=== PATIENT | male | born 1975 | race Two or more races ===

== ENCOUNTER 2021-04-02 10:05 | Inpatient (IN) | payer MEDICAID, OTHER ==
[~2021-04-02] VITALS: Ht 167.6 cm; Wt 89.5 kg
[2021-04-02 11:04] LABS: Urine Bacteria FEW /hpf (None Seen); Urine Blood Negative /uL (Negative); Urine Hyaline Cast FEW /lpf (0 - 2); Urine Mucus FEW (None Seen); Urine Specific Gravity 1.019 (1.001-1.035); Urine WBC 1 /hpf (0 - 3)
[2021-04-02 11:37] LABS: Basophils # (auto) 0 10 ^3/uL (0-0.2); Eosinophils # (auto) 0 10 ^3/uL (0-0.8); Lymphocytes # (auto) 0.5 10 ^3/uL (0.4-5.4); Monocytes # (auto) 0.7 10 ^3/uL (0-1.3)
[2021-04-02 11:39] LABS: Basophils % (auto) 0.2 % (0.0-2.0); Eosinophils % (auto) 0.1 % (0.0-7.0); Hematocrit 41.6 % (41.0-53.0); Lymphocytes % (auto) 4.4 % (10.0-50.0); Mean Corpuscular Hemoglobin 26.9 pg (28.0-32.0); Mean Corpuscular Hgb Conc. 33.6 g/dL (32.0-36.0); Mean Corpuscular Volume 80.1 fL (80.0-100.0); Monocytes % (auto) 5.6 % (0.0-12.0); Neutrophils # (auto) 11.1 10 ^3/uL (1.6-8.6); Neutrophils % (auto) 89.7 % (37.0-80.0); Nucleated Red Blood Cells % 0.1 %; Red Cell Distribution Width 13.9 % (11.8-14.3); White Blood Cell 12.4 10^3/uL (4.4-10.8)
[2021-04-02 11:48] LABS: Albumin 3.8 g/dL (3.4-5.0); Calcium 8.4 mg/dL (8.5-10.1); Potassium 4.5 mmol/L (3.5-5.1)
[2021-04-02 11:59] LABS: Total Protein 7.1 g/dL (6.4-8.2)
[2021-04-02] MEDS ORDERED: cefTRIAXone 1GM/50ML D5W 50 ML IV ONE (15:15)
[2021-04-02] MEDS ORDERED: NITROGLYCERIN 0.4 MG SL TAB SL PRN (18:00)
[2021-04-02] MEDS ORDERED: MORPHINE SULFATE INJECTION 2 MG/ML SYRG IV PRN ×2 (18:00→19:30)
[2021-04-02] MEDS ORDERED: DEXTROSE (50%) 50ML SYRG IV PRN (18:00)
[2021-04-02] MEDS: ACCU-CHEK COMFORT CURVE STRIP VI SCH ×2 (18:54→23:50)
[2021-04-02] MEDS: InsuLIN REG 1unit/0.01ml Soln (100units/ml) SC SCH ×2 (19:14→23:56)
[2021-04-02] MEDS ORDERED: hydrALAZINE HCL 20 MG/ML VL IV PRN (19:30)
[2021-04-02] MEDS ORDERED: HYDROcodone-ACET 5/325MG TAB PO ONE (19:30)
[2021-04-02] MEDS ORDERED: IPRATROPIUM BROM 0.5 MG/2.5ML INH SOL NEB ONE (19:30)
[2021-04-02] MEDS ORDERED: LORazepam 0.5 MG TAB PO PRN (19:30)
[2021-04-02] MEDS ORDERED: MULTIPLE VITAMINS W/ MINERALS TAB PO ONE (19:30)
[2021-04-02] MEDS ORDERED: ONDANSETRON HCL 4 MG/2 ML VIAL IV PRN (19:30)
[2021-04-02] MEDS ORDERED: FOLIC ACID 1 MG TAB PO ONE (19:30)
[2021-04-02] MEDS ORDERED: THIAMINE 100mg/ml INJ (200mg/2ml VIAL) IV ONE (19:30)
[2021-04-02] MEDS ORDERED: HYDROcodone-ACET 5/325MG TAB PO PRN ×2 (19:30)
[2021-04-02 19:32] LABS: Lactic Acid w/Reflex 3.7 mmol/L (0.4-2.0)
[2021-04-02 20:06] LABS: Magnesium 2.9 mg/dL (1.6-2.6)
[2021-04-02] MEDS ORDERED: IPRATROPIUM BROM 0.5 MG/2.5ML INH SOL NEB SCH (22:00)
[2021-04-02] MEDS ORDERED: IPRATROPIUM BROM 0.5 MG/2.5ML INH SOL NEB PRN (22:00)
[2021-04-02] MEDS ORDERED: POTASSIUM CHL 20 Meq TABLET PO SCH (22:00)
[2021-04-02] MEDS: PANTOPRAZOLE 40 MG/10 ML VIAL INJ IV SCH (22:21)
[2021-04-02 23:52] LABS: INR 1.17 (0.9-1.15); Partial Thromboplastin Time 21.4 sec (23.6-33.0)
[2021-04-03] MEDS: LACTULOSE 20Gm/30ML SOLN PO PRN (03:10)
[2021-04-03] MEDS: ACCU-CHEK COMFORT CURVE STRIP VI SCH ×3 (06:00→18:05)
[2021-04-03] MEDS ORDERED: FUROSEMIDE 20 MG/2 ML VIAL IV SCH (06:00)
[2021-04-03] MEDS: SODIUM CHLORIDE 0.9% 1,000 ML IV SCH ×2 (06:00→08:15)
[2021-04-03] MEDS: InsuLIN REG 1unit/0.01ml Soln (100units/ml) SC SCH ×3 (07:02→18:14)
[2021-04-03 07:47] LABS: INR 1.26 (0.9-1.15); Partial Thromboplastin Time 24.1 sec (23.6-33.0)
[2021-04-03 08:05] LABS: Magnesium 3.6 mg/dL (1.6-2.6); Phosphorus 5.7 mg/dL (2.5-4.90); Uric Acid 13.4 mg/dL (3.5-7.2)
[2021-04-03] MEDS: INSULIN LANTUS (GLARGINE) 1 /0.01ml (100units/ml) SC SCH ×2 (08:15→23:52)
[2021-04-03] MEDS: cefTRIAXone 1GM/50ML D5W 50 ML IV SCH (09:00)
[2021-04-03 09:08] LABS: Basophils # (auto) 0 10 ^3/uL (0-0.2); Eosinophils # (auto) 0 10 ^3/uL (0-0.8); Eosinophils % (auto) 0.2 % (0.0-7.0); Hemoglobin 13.5 g/dL (13.5-17.5); Mean Corpuscular Hemoglobin 26.1 pg (28.0-32.0); Monocytes # (auto) 1.2 10 ^3/uL (0-1.3)
[2021-04-03 09:11] LABS: Basophils % (auto) 0.3 % (0.0-2.0); Hematocrit 41.4 % (41.0-53.0); Lymphocytes # (auto) 0.9 10 ^3/uL (0.4-5.4); Lymphocytes % (auto) 6.9 % (10.0-50.0); Mean Corpuscular Hgb Conc. 32.7 g/dL (32.0-36.0); Monocytes % (auto) 9.3 % (0.0-12.0); Neutrophils # (auto) 10.9 10 ^3/uL (1.6-8.6); Neutrophils % (auto) 83.3 % (37.0-80.0); Nucleated Red Blood Cells % 0.1 %; Red Blood Cells 5.18 10^6/uL (4.5-5.90); Red Cell Distribution Width 13.5 % (11.8-14.3); White Blood Cell 13.1 10^3/uL (4.4-10.8)
[2021-04-03 09:13] LABS: Albumin 3.5 g/dL (3.4-5.0); Calcium 8.7 mg/dL (8.5-10.1); Potassium 4.3 mmol/L (3.5-5.1)
[2021-04-03 09:16] LABS: BUN/Creatinine Ratio 36.7; Total Protein 6.7 g/dL (6.4-8.2)
[2021-04-03] MEDS: METOPROLOL TARTRATE 25 MG TAB PO SCH ×2 (09:50→22:51)
[2021-04-03] MEDS: MULTIPLE VITAMINS W/ MINERALS TAB PO SCH (09:50)
[2021-04-03] MEDS: PANTOPRAZOLE 40 MG/10 ML VIAL INJ IV SCH ×2 (10:00→21:56)
[2021-04-03] MEDS ORDERED: FOLIC ACID 1 MG TAB PO SCH (10:00)
[2021-04-03] MEDS ORDERED: THIAMINE HCL 100 MG TAB PO SCH (10:00)
[2021-04-03] MEDS ORDERED: ENOXAPARIN SOD 40 MG/0.4 ML SYRINGE SC SCH (10:00)
[2021-04-03] MEDS ORDERED: HYDR25TA5 PO (10:02)
[2021-04-03] MEDS ORDERED: NIFE1TAB30 PO (10:02)
[2021-04-03] MEDS ORDERED: METF-370 PO ×2 (10:21→13:11)
[2021-04-03] MEDS ORDERED: BENA10TA15 PO ×2 (10:21→13:11)
[2021-04-03] MEDS: AZITHROMYCIN 500MG/ 250ML 250 ML IV SCH (11:00)
[2021-04-03 13:00] VITALS: BP_SYST 122; BP_SYST 169; BP_DIAS 65; BP_DIAS 98
[2021-04-03 13:03] LABS: Amphetamine Screen, Urine NEGATIVE (NEGATIVE); Barbiturate Scree,Urine NEGATIVE (NEGATIVE); Benzodiazephine Screen, Urine NEGATIVE (NEGATIVE); Cannabinoid Screen, Urine NEGATIVE (NEGATIVE); Cocaine Screen, Urine NEGATIVE (NEGATIVE); Opiate Scree,Urine NEGATIVE (NEGATIVE); Phencyclidine Screen, Urine NEGATIVE (NEGATIVE)
[2021-04-03] MEDS ORDERED: FURO1TAB33 PO (13:11)
[2021-04-03] MEDS ORDERED: PRED20TA2 PO (13:11)
[2021-04-03] MEDS ORDERED: cloNIDine HCL 0.1 MG TAB PO STA (16:25)
[2021-04-03 17:00] VITALS: BP 125/92
[2021-04-04] VITALS (21 sets, daily range): BP systolic 115–167; BP diastolic 74–106
[2021-04-04] MEDS: ACCU-CHEK COMFORT CURVE STRIP VI SCH ×4 (00:18→17:23)
[2021-04-04] MEDS: InsuLIN REG 1unit/0.01ml Soln (100units/ml) SC SCH ×5 (06:00→23:44)
[2021-04-04 06:08] LABS: Basophils # (auto) 0 10 ^3/uL (0-0.2); Eosinophils # (auto) 0 10 ^3/uL (0-0.8); Lymphocytes # (auto) 1.1 10 ^3/uL (0.4-5.4); Neutrophils # (auto) 12.1 10 ^3/uL (1.6-8.6); Nucleated Red Blood Cells % 0.1 %
[2021-04-04 06:12] LABS: Basophils % (auto) 0.2 % (0.0-2.0); Eosinophils % (auto) 0.2 % (0.0-7.0); Hematocrit 42.6 % (41.0-53.0); Hemoglobin 13.9 g/dL (13.5-17.5); Lymphocytes % (auto) 7.3 % (10.0-50.0); Mean Corpuscular Hemoglobin 26.3 pg (28.0-32.0); Mean Corpuscular Hgb Conc. 32.6 g/dL (32.0-36.0); Mean Corpuscular Volume 80.6 fL (80.0-100.0); Monocytes # (auto) 1.4 10 ^3/uL (0-1.3); Monocytes % (auto) 9.5 % (0.0-12.0); Neutrophils % (auto) 82.8 % (37.0-80.0); Red Blood Cells 5.28 10^6/uL (4.5-5.90); Red Cell Distribution Width 14.1 % (11.8-14.3); White Blood Cell 14.6 10^3/uL (4.4-10.8)
[2021-04-04 06:21] LABS: INR 1.4 (0.9-1.15); Partial Thromboplastin Time 25.1 sec (23.6-33.0)
[2021-04-04 06:38] LABS: Potassium 4.3 mmol/L (3.5-5.1)
[2021-04-04 06:56] LABS: BUN/Creatinine Ratio 34.6; Calcium 8.2 mg/dL (8.5-10.1)
[2021-04-04] MEDS: INSULIN LANTUS (GLARGINE) 1 /0.01ml (100units/ml) SC SCH ×2 (07:00→22:06)
[2021-04-04] MEDS ORDERED: LIDOCAINE 2%HCL (LOCAL ANESTH.) INJ 20ML MDV ONE (08:30)
[2021-04-04] MEDS ORDERED: fentaNYL CITRATE 100 MCG/2 ML VL ONE ×3 (08:33→09:41)
[2021-04-04] MEDS ORDERED: MIDAZOLAM HCL 2MG/2ML 2ml VIAL (1mg/ml) ONE ×2 (08:33→09:42)
[2021-04-04] MEDS ORDERED: SODIUM CHLORIDE 0.9% 500 ML IV ONE (09:00)
[2021-04-04] MEDS ORDERED: ATROPINE SULF 1 MG/10ml SYR ONE (09:01)
[2021-04-04] MEDS ORDERED: EPINEPHrine HCL 1 MG/10 ML SYRG ONE (09:01)
[2021-04-04] MEDS ORDERED: ANGIOMAX 250 MG VIAL IV ONE (09:40)
[2021-04-04] MEDS ORDERED: VERAPAMIL 2.5MG/ML INJ 2ML VIAL IV ONE (09:41)
[2021-04-04] MEDS ORDERED: HEPARIN SODIUM (PORCINE) 5000 UNITS/ML 1ML VIAL ONE (09:41)
[2021-04-04] MEDS ORDERED: SODIUM CHL 0.9% 0 ML ONE (09:42)
[2021-04-04] MEDS ORDERED: IODIXANOL 320MG/ML 100ML BTL IV ONE (09:42)
[2021-04-04] MEDS: SODIUM CHLORIDE 0.9% 1,000 ML IV SCH ×2 (11:45→19:00)
[2021-04-04] MEDS: cefTRIAXone 1GM/50ML D5W 50 ML IV SCH (11:55)
[2021-04-04] MEDS: AZITHROMYCIN 500MG/ 250ML 250 ML IV SCH (13:00)
[2021-04-04] MEDS: PANTOPRAZOLE 40 MG/10 ML VIAL INJ IV SCH ×2 (13:00→22:44)
[2021-04-04] MEDS: MULTIPLE VITAMINS W/ MINERALS TAB PO SCH (13:15)
[2021-04-04] MEDS: METOPROLOL TARTRATE 25 MG TAB PO SCH ×2 (13:15→22:45)
[2021-04-04] MEDS: hydrALAZINE HCL 20 MG/ML VL IV PRN (13:51)
[2021-04-04 14:05] LABS: Hemoglobin 14.5 g/dL (13.5-17.5)
[2021-04-05] VITALS (16 sets, daily range): BP systolic 123–160; BP diastolic 73–94
[2021-04-05 04:24] LABS: Calcium 7.6 mg/dL (8.5-10.1); Potassium 3.8 mmol/L (3.5-5.1)
[2021-04-05 04:26] LABS: BUN/Creatinine Ratio 35.5
[2021-04-05] MEDS: SODIUM CHLORIDE 0.9% 1,000 ML IV SCH (04:45)
[2021-04-05] MEDS: InsuLIN REG 1unit/0.01ml Soln (100units/ml) SC SCH ×4 (05:51→22:32)
[2021-04-05] MEDS: ACCU-CHEK COMFORT CURVE STRIP VI SCH ×5 (05:52→22:00)
[2021-04-05] MEDS: INSULIN LANTUS (GLARGINE) 1 /0.01ml (100units/ml) SC SCH ×2 (06:32→22:33)
[2021-04-05 08:18] LABS: Magnesium 2.8 mg/dL (1.6-2.6); Phosphorus 3.2 mg/dL (2.5-4.90)
[2021-04-05 08:39] LABS: Basophils # (auto) 0.1 10 ^3/uL (0-0.2); Basophils % (auto) 0.4 % (0.0-2.0); Eosinophils # (auto) 0.1 10 ^3/uL (0-0.8); Lymphocytes # (auto) 0.7 10 ^3/uL (0.4-5.4); Monocytes # (auto) 1.3 10 ^3/uL (0-1.3); Neutrophils % (auto) 83.6 % (37.0-80.0); Red Cell Distribution Width 13.8 % (11.8-14.3)
[2021-04-05 08:41] LABS: Eosinophils % (auto) 0.4 % (0.0-7.0); Hematocrit 40.5 % (41.0-53.0); Hemoglobin 13.6 g/dL (13.5-17.5); Lymphocytes % (auto) 5.6 % (10.0-50.0); Mean Corpuscular Hgb Conc. 33.7 g/dL (32.0-36.0); Mean Corpuscular Volume 80.1 fL (80.0-100.0); Neutrophils # (auto) 10.8 10 ^3/uL (1.6-8.6); Nucleated Red Blood Cells % 0.3 %; Red Blood Cells 5.06 10^6/uL (4.5-5.90)
[2021-04-05] MEDS: METOPROLOL TARTRATE 25 MG TAB PO SCH ×2 (09:03→22:24)
[2021-04-05] MEDS: cefTRIAXone 1GM/50ML D5W 50 ML IV SCH (09:03)
[2021-04-05] MEDS: AZITHROMYCIN 500MG/ 250ML 250 ML IV SCH (09:03)
[2021-04-05] MEDS ORDERED: DEXTROSE (50%) 50ML SYRG IV PRN (16:00)
[2021-04-05] MEDS ORDERED: DEXTROSE (50%) 50ML SYRG IV ONE (16:00)
[2021-04-05] MEDS ORDERED: InsuLIN REG 1unit/0.01ml Soln (100units/ml) SC ONE (17:00)
[2021-04-05] MEDS ORDERED: ACCU-CHEK COMFORT CURVE STRIP VI ONE (17:00)
[2021-04-05] MEDS: hydrALAZINE HCL 20 MG/ML VL IV PRN (18:28)
[2021-04-06 05:00] VITALS: BP 153/92
[2021-04-06 05:49] LABS: Basophils # (auto) 0 10 ^3/uL (0-0.2); Basophils % (auto) 0.4 % (0.0-2.0); Eosinophils # (auto) 0.1 10 ^3/uL (0-0.8); Monocytes # (auto) 1.2 10 ^3/uL (0-1.3)
[2021-04-06 05:52] LABS: Eosinophils % (auto) 1.3 % (0.0-7.0); Hematocrit 41.2 % (41.0-53.0); Hemoglobin 13.7 g/dL (13.5-17.5); Lymphocytes # (auto) 0.6 10 ^3/uL (0.4-5.4); Lymphocytes % (auto) 6.1 % (10.0-50.0); Mean Corpuscular Hemoglobin 26.9 pg (28.0-32.0); Mean Corpuscular Hgb Conc. 33.3 g/dL (32.0-36.0); Mean Corpuscular Volume 80.8 fL (80.0-100.0); Monocytes % (auto) 12.8 % (0.0-12.0); Neutrophils # (auto) 7.4 10 ^3/uL (1.6-8.6); Neutrophils % (auto) 79.4 % (37.0-80.0); Nucleated Red Blood Cells % 0.1 %; Red Cell Distribution Width 13.9 % (11.8-14.3); White Blood Cell 9.3 10^3/uL (4.4-10.8)
[2021-04-06 06:08] LABS: BUN/Creatinine Ratio 19.1; Potassium 3.7 mmol/L (3.5-5.1)
[2021-04-06] MEDS: InsuLIN REG 1unit/0.01ml Soln (100units/ml) SC SCH ×4 (06:31→22:03)
[2021-04-06] MEDS: ACCU-CHEK COMFORT CURVE STRIP VI SCH ×4 (06:31→21:47)
[2021-04-06] MEDS: hydrALAZINE HCL 20 MG/ML VL IV PRN ×2 (06:32→13:39)
[2021-04-06] MEDS: INSULIN LANTUS (GLARGINE) 1 /0.01ml (100units/ml) SC SCH ×2 (06:51→22:04)
[2021-04-06 09:00] VITALS: BP 157/93
[2021-04-06] MEDS: METOPROLOL TARTRATE 25 MG TAB PO SCH ×2 (09:46→21:46)
[2021-04-06] MEDS: cefTRIAXone 1GM/50ML D5W 50 ML IV SCH (09:47)
[2021-04-06] MEDS: AZITHROMYCIN 500MG/ 250ML 250 ML IV SCH (09:48)
[2021-04-06 13:00] VITALS: BP 158/99
[2021-04-06 15:29] LABS: Urine Bacteria NONE SEEN /hpf (None Seen); Urine Blood Negative /uL (Negative); Urine Specific Gravity 1.009 (1.001-1.035); Urine WBC 2 /hpf (0 - 3)
[2021-04-06 15:45] LABS: Protein, Urine 14.9 mg/dL (0.0-11.9)
[2021-04-06 17:00] VITALS: BP 152/89
[2021-04-06 20:20] VITALS: BP 172/103
[2021-04-06] MEDS: LACTULOSE 20Gm/30ML SOLN PO PRN (22:05)
[2021-04-07 06:00] VITALS: BP 140/96
[2021-04-07 06:13] LABS: BUN/Creatinine Ratio 13.3; Calcium 8.2 mg/dL (8.5-10.1); Potassium 3.7 mmol/L (3.5-5.1)
[2021-04-07] MEDS: ACCU-CHEK COMFORT CURVE STRIP VI SCH ×4 (06:30→22:10)
[2021-04-07] MEDS: InsuLIN REG 1unit/0.01ml Soln (100units/ml) SC SCH ×5 (06:30→22:17)
[2021-04-07] MEDS: INSULIN LANTUS (GLARGINE) 1 /0.01ml (100units/ml) SC SCH ×2 (06:37→22:12)
[2021-04-07] MEDS: cefTRIAXone 1GM/50ML D5W 50 ML IV SCH (08:51)
[2021-04-07] MEDS: METOPROLOL TARTRATE 25 MG TAB PO SCH ×2 (08:52→22:10)
[2021-04-07 09:00] VITALS: BP 139/97
[2021-04-07] MEDS: AZITHROMYCIN 500MG/ 250ML 250 ML IV SCH (10:07)
[2021-04-07 13:00] VITALS: BP 152/98
[2021-04-07 17:00] VITALS: BP 145/97
[2021-04-07 22:00] VITALS: BP 153/100
[2021-04-08] MEDS: ENALAPRILAT 1.25 MG/ML-1ML VIAL IV PRN ×3 (00:40→18:46)
[2021-04-08 05:00] VITALS: BP 143/93
[2021-04-08] MEDS: ACCU-CHEK COMFORT CURVE STRIP VI SCH ×4 (05:50→21:56)
[2021-04-08] MEDS: InsuLIN REG 1unit/0.01ml Soln (100units/ml) SC SCH ×4 (05:50→21:57)
[2021-04-08] MEDS: INSULIN LANTUS (GLARGINE) 1 /0.01ml (100units/ml) SC SCH ×2 (05:52→21:58)
[2021-04-08 07:03] LABS: Basophils # (auto) 0.1 10 ^3/uL (0-0.2); Basophils % (auto) 0.7 % (0.0-2.0); Eosinophils # (auto) 0.4 10 ^3/uL (0-0.8); Eosinophils % (auto) 4.1 % (0.0-7.0); Hematocrit 42.4 % (41.0-53.0); Hemoglobin 14.1 g/dL (13.5-17.5); Lymphocytes # (auto) 0.8 10 ^3/uL (0.4-5.4); Lymphocytes % (auto) 8.3 % (10.0-50.0); Mean Corpuscular Hemoglobin 26.5 pg (28.0-32.0); Mean Corpuscular Hgb Conc. 33.2 g/dL (32.0-36.0); Mean Corpuscular Volume 79.9 fL (80.0-100.0); Monocytes # (auto) 1.3 10 ^3/uL (0-1.3); Monocytes % (auto) 14.6 % (0.0-12.0); Neutrophils # (auto) 6.6 10 ^3/uL (1.6-8.6); Neutrophils % (auto) 72.3 % (37.0-80.0); Nucleated Red Blood Cells % 0.1 %; Red Cell Distribution Width 13.7 % (11.8-14.3); White Blood Cell 9.2 10^3/uL (4.4-10.8)
[2021-04-08 07:19] LABS: Potassium 3.7 mmol/L (3.5-5.1)
[2021-04-08 07:35] LABS: Albumin 2.8 g/dL (3.4-5.0); BUN/Creatinine Ratio 13.5; Bilirubin, Total 1.1 mg/dL (0.2-1.0); Calcium 8.4 mg/dL (8.5-10.1); Total Protein 5.9 g/dL (6.4-8.2)
[2021-04-08 09:00] VITALS: BP 143/94
[2021-04-08] MEDS: cefTRIAXone 1GM/50ML D5W 50 ML IV SCH (09:19)
[2021-04-08] MEDS: METOPROLOL TARTRATE 25 MG TAB PO SCH ×2 (09:20→22:15)
[2021-04-08] MEDS: AZITHROMYCIN 500MG/ 250ML 250 ML IV SCH (10:56)
[2021-04-08 13:00] VITALS: BP 162/97
[2021-04-08] MEDS: hydrALAZINE HCL 20 MG/ML VL IV PRN (13:07)
[2021-04-08] MEDS ORDERED: diphenhdrAMINE HCL 50 MG/1 ML VL IM ONE (13:15)
[2021-04-08] MEDS ORDERED: diphenhdrAMINE HCL 50 MG/1 ML VL IV ONE (14:30)
[2021-04-08 17:00] VITALS: BP_SYST 158; BP_SYST 169; BP_DIAS 83; BP_DIAS 98
[2021-04-08 22:00] VITALS: BP 164/100
[2021-04-09] MEDS: ENALAPRILAT 1.25 MG/ML-1ML VIAL IV PRN ×2 (00:32→13:26)
[2021-04-09 05:00] VITALS: BP 147/89
[2021-04-09] MEDS: ACCU-CHEK COMFORT CURVE STRIP VI SCH ×4 (05:33→22:14)
[2021-04-09] MEDS: InsuLIN REG 1unit/0.01ml Soln (100units/ml) SC SCH ×4 (05:34→22:14)
[2021-04-09] MEDS: INSULIN LANTUS (GLARGINE) 1 /0.01ml (100units/ml) SC SCH ×2 (05:35→22:13)
[2021-04-09 05:40] LABS: Basophils # (auto) 0.1 10 ^3/uL (0-0.2); Basophils % (auto) 0.7 % (0.0-2.0); Eosinophils # (auto) 0.3 10 ^3/uL (0-0.8); Hemoglobin 13.3 g/dL (13.5-17.5); Neutrophils # (auto) 6.2 10 ^3/uL (1.6-8.6); Neutrophils % (auto) 71.2 % (37.0-80.0); White Blood Cell 8.7 10^3/uL (4.4-10.8)
[2021-04-09 05:43] LABS: Hematocrit 39.5 % (41.0-53.0); Lymphocytes # (auto) 0.7 10 ^3/uL (0.4-5.4); Lymphocytes % (auto) 8.5 % (10.0-50.0); Mean Corpuscular Hemoglobin 26.8 pg (28.0-32.0); Mean Corpuscular Hgb Conc. 33.6 g/dL (32.0-36.0); Mean Corpuscular Volume 79.7 fL (80.0-100.0); Monocytes # (auto) 1.4 10 ^3/uL (0-1.3); Monocytes % (auto) 15.6 % (0.0-12.0); Red Blood Cells 4.95 10^6/uL (4.5-5.90); Red Cell Distribution Width 13.6 % (11.8-14.3)
[2021-04-09 06:07] LABS: Potassium 3.8 mmol/L (3.5-5.1)
[2021-04-09 06:16] LABS: Albumin 2.5 g/dL (3.4-5.0); BUN/Creatinine Ratio 12.5; Calcium 8.2 mg/dL (8.5-10.1)
[2021-04-09 06:19] LABS: Bilirubin, Total 0.9 mg/dL (0.2-1.0); Total Protein 5.8 g/dL (6.4-8.2)
[2021-04-09 09:00] VITALS: BP 179/99
[2021-04-09] MEDS: AZITHROMYCIN 500MG/ 250ML 250 ML IV SCH (11:17)
[2021-04-09] MEDS: cefTRIAXone 1GM/50ML D5W 50 ML IV SCH (11:17)
[2021-04-09] MEDS: METOPROLOL TARTRATE 25 MG TAB PO SCH ×2 (11:18→22:00)
[2021-04-09] MEDS: NIFEdipine ER 30 MG TAB PO SCH (11:21)
[2021-04-09 13:00] VITALS: BP 200/109
[2021-04-09] MEDS: hydrALAZINE HCL 20 MG/ML VL IV PRN (13:18)
[2021-04-09] MEDS ORDERED: hydrALAZINE HCL 20 MG/ML VL IV PRN (16:45)
[2021-04-09 17:00] VITALS: BP 172/98
[2021-04-10 06:49] LABS: BUN/Creatinine Ratio 12.7; Calcium 8.1 mg/dL (8.5-10.1); Potassium 3.5 mmol/L (3.5-5.1)
[2021-04-10 06:56] LABS: Basophils # (auto) 0.1 10 ^3/uL (0-0.2); Eosinophils # (auto) 0.4 10 ^3/uL (0-0.8); Monocytes # (auto) 1.2 10 ^3/uL (0-1.3); Neutrophils # (auto) 5.7 10 ^3/uL (1.6-8.6)
[2021-04-10 06:57] LABS: Eosinophils % (auto) 4.4 % (0.0-7.0); Hematocrit 39.3 % (41.0-53.0); Hemoglobin 13.5 g/dL (13.5-17.5); Lymphocytes # (auto) 0.9 10 ^3/uL (0.4-5.4); Lymphocytes % (auto) 11.2 % (10.0-50.0); Mean Corpuscular Hemoglobin 27.1 pg (28.0-32.0); Mean Corpuscular Hgb Conc. 34.4 g/dL (32.0-36.0); Mean Corpuscular Volume 78.7 fL (80.0-100.0); Monocytes % (auto) 14.5 % (0.0-12.0); Neutrophils % (auto) 68.9 % (37.0-80.0); Red Cell Distribution Width 13.7 % (11.8-14.3); White Blood Cell 8.3 10^3/uL (4.4-10.8)
[2021-04-10] MEDS: InsuLIN REG 1unit/0.01ml Soln (100units/ml) SC SCH ×2 (07:00→12:47)
[2021-04-10] MEDS: ACCU-CHEK COMFORT CURVE STRIP VI SCH ×2 (07:00→12:45)
[2021-04-10] MEDS: INSULIN LANTUS (GLARGINE) 1 /0.01ml (100units/ml) SC SCH (08:00)
[2021-04-10 09:00] VITALS: BP 138/81
[2021-04-10] MEDS: METOPROLOL TARTRATE 25 MG TAB PO SCH (09:26)
[2021-04-10] MEDS: NIFEdipine ER 30 MG TAB PO SCH (09:27)
[2021-04-10] MEDS ORDERED: METOPROLOL TARTRATE 50 MG TAB PO SCH (10:00)
[2021-04-10] MEDS ORDERED: diphenhdrAMINE HCL 25 MG CAP PO PRN (10:15)
[2021-04-10 13:00] VITALS: BP 138/82
[2021-04-10] MEDS ORDERED: MET50T PO (13:11)
[2021-04-10] MEDS ORDERED: METF-370 PO (13:11)
[2021-04-10 14:33] VITALS: BP 138/82
[2021-04-10 17:16] VITALS: BP 151/87
== END 2021-04-10 18:01 | disposition home or self-care (01) | DRG 136 ==
LOC: ER 10:05 → TELE 17:53 → TELE-WESTW 04-03 09:24 → CATH ICU 04-04 12:51 → TELE-WESTW 04-05 17:50
PROVIDERS: ADMIT Hospitalist; ATTEND Internal Medicine
PROC: 0W9D30Z Drainage of Pericardial Cavity with Drainage Device, Percutaneous Approach (ICD-10-PCS; principal; 2021-04-04)
PROC: B24 Imaging, Heart, Ultrasonography (ICD-10-PCS; 2021-04-04)
PROC: B216YZZ Fluoroscopy of Right and Left Heart using Other Contrast (ICD-10-PCS; 2021-04-04)
DX: C34.90 Malignant neoplasm of unspecified part of unspecified bronchus or lung (principal); I50.33 Acute on chronic diastolic (congestive) heart failure; N17.9 Acute kidney failure, unspecified; I31.3 Pericardial effusion (noninflammatory); J18.9 Pneumonia, unspecified organism; I13.0 Hypertensive heart and chronic kidney disease with heart failure and stage 1 through stage 4 chronic kidney disease, or unspecified chronic kidney disease; R18.8 Other ascites; E87.1 Hypo-osmolality and hyponatremia; E11.22 Type 2 diabetes mellitus with diabetic chronic kidney disease; R16.0 Hepatomegaly, not elsewhere classified; N39.0 Urinary tract infection, site not specified; N18.31 Chronic kidney disease, stage 3a; E66.01 Morbid (severe) obesity due to excess calories; K75.81 Nonalcoholic steatohepatitis (NASH); Z20.822 Contact with and (suspected) exposure to COVID-19; I16.9 Hypertensive crisis, unspecified; E78.5 Hyperlipidemia, unspecified; F17.200 Nicotine dependence, unspecified, uncomplicated; R00.0 Tachycardia, unspecified; Z91.19 Patient's noncompliance with other medical treatment and regimen; Z68.31 Body mass index [BMI] 31.0-31.9, adult; Z79.84 Long term (current) use of oral hypoglycemic drugs; Z82.49 Family history of ischemic heart disease and other diseases of the circulatory system
CPT/HCPCS: 33016; 36415; 71045; 71250; 74176; 80048; 80053; 80061; 80307; 81001; 82570; 82728; 82962; 83036; 83516; 83605; 83615; 83735; 83880; 84100; 84155; 84156; 84165; 84300; 84443; 84484; 84550; 85014; 85018; 85025; 85379; 85610; 85652; 85730; 86141; 86225; 86235; 87040; 87086; 87205; 87426; 87517; 89051; 93005; 93306; 96365; 99152; 99153; 99291; C9113; G0378; J0696; J1815; J2250; Q9967

== ENCOUNTER → 2021-07-05 | Outpatient (CLI) | payer MEDICAID ==
[~2021-07-05] MED LIST: BENA10TA15 PO; HYDR25TA5 PO; MET50T PO; METF-370 PO; NIFE1TAB30 PO
[2021-07-05 08:31] LABS: Basophils # (auto) 0 10 ^3/uL (0-0.2); Basophils % (auto) 0.7 % (0.0-2.0); Eosinophils # (auto) 0.2 10 ^3/uL (0-0.8); Eosinophils % (auto) 5.1 % (0.0-7.0); Hematocrit 38.6 % (41.0-53.0); Hemoglobin 13.2 g/dL (13.5-17.5); Lymphocytes # (auto) 1.4 10 ^3/uL (0.4-5.4); Lymphocytes % (auto) 28.2 % (10.0-50.0); Mean Corpuscular Hemoglobin 27.1 pg (28.0-32.0); Mean Corpuscular Hgb Conc. 34.2 g/dL (32.0-36.0); Mean Corpuscular Volume 79.3 fL (80.0-100.0); Monocytes # (auto) 0.5 10 ^3/uL (0-1.3); Neutrophils # (auto) 2.7 10 ^3/uL (1.6-8.6); Red Blood Cells 4.86 10^6/uL (4.5-5.90); Red Cell Distribution Width 19.6 % (11.8-14.3); White Blood Cell 4.9 10^3/uL (4.4-10.8)
[2021-07-05 09:08] LABS: Albumin 3.5 g/dL (3.4-5.0); Calcium 8.8 mg/dL (8.5-10.1); Potassium 4.1 mmol/L (3.5-5.1)
[2021-07-05 09:13] LABS: BUN/Creatinine Ratio 19.1; Bilirubin, Total 0.7 mg/dL (0.2-1.0); Total Protein 7.3 g/dL (6.4-8.2)
== END | disposition home or self-care (01) ==
LOC: LAB 08:13
PROVIDERS: ATTEND Nurse Practitioner Family
DX: Z00.00 Encounter for general adult medical examination without abnormal findings (principal); C80.1 Malignant (primary) neoplasm, unspecified; E11.9 Type 2 diabetes mellitus without complications; I10 Essential (primary) hypertension
CPT/HCPCS: 36415; 80053; 80061; 83036; 84439; 84443; 85025

== ENCOUNTER → 2023-01-13 | Outpatient (CLI) | payer MEDICAID ==
[~2023-01-13] MED LIST changes: +BENA-19 PO; -BENA10TA15 PO
[2023-01-13 11:55] LABS: Basophils # (auto) 0 10 ^3/uL (0-0.2); Basophils % (auto) 0.9 % (0.0-2.0); Eosinophils # (auto) 0.3 10 ^3/uL (0-0.8); Eosinophils % (auto) 5.5 % (0.0-7.0); Hematocrit 31.3 % (41.0-53.0); Hemoglobin 10.3 g/dL (13.5-17.5); Lymphocytes # (auto) 1.1 10 ^3/uL (0.4-5.4); Lymphocytes % (auto) 22.6 % (10.0-50.0); Mean Corpuscular Hemoglobin 27.5 pg (28.0-32.0); Mean Corpuscular Volume 83.4 fL (80.0-100.0); Monocytes # (auto) 0.4 10 ^3/uL (0-1.3); Monocytes % (auto) 8.3 % (0.0-12.0); Neutrophils # (auto) 3.1 10 ^3/uL (1.6-8.6); Neutrophils % (auto) 62.7 % (37.0-80.0); Red Blood Cells 3.75 10^6/uL (4.5-5.90); White Blood Cell 4.9 10^3/uL (4.4-10.8)
[2023-01-13 13:24] LABS: Creatinine, Urine 61.97 mg/dL (30.0-125.0)
[2023-01-13 13:25] LABS: Prostate Specific Antigen 0.46 ng/mL (0.0-4.0)
[2023-01-13 13:27] LABS: Micro Albumin < 3.0 mg/L (<30.0)
[2023-01-13 13:29] LABS: Free T4 (Free Thyroxine) 1.27 ng/dL (0.89-1.76)
[2023-01-13 13:35] LABS: Alanine Aminotransferase 25 U/L (7-40); Albumin 4.7 g/dL (3.2-4.8); Alkaline Phosphatase 149 U/L (46-116); Anion Gap 8 (5-15); Aspartate Aminotransferase 25 U/L (13-40); Blood Urea Nitrogen 11 mg/dL (9-23); Calcium 9.5 mg/dL (8.5-10.1); Carbon Dioxide 28 mmol/L (20-30); Chloride 103 mmol/L (98-107); Cholesterol 80 mg/dL (< 200); Glucose 112 mg/dL (74-106); HDL Cholesterol 29 mg/dL (40-59); LDL Cholesterol 35 mg/dL (< 100); Sodium 139 mmol/L (136-145); Triglycerides 72 mg/dL (< 150)
[2023-01-13 13:36] LABS: Bilirubin, Total 1.9 mg/dL (0.2-1.0); Total Protein 7.4 g/dL (5.7-8.2)
== END | disposition home or self-care (01) ==
LOC: LAB 11:09
DX: Z00.01 Encounter for general adult medical examination with abnormal findings (principal); I10 Essential (primary) hypertension; E11.69 Type 2 diabetes mellitus with other specified complication; N52.2 Drug-induced erectile dysfunction
CPT/HCPCS: 36415; 80053; 80061; 82043; 82570; 83036; 84153; 84439; 84443; 85025

== ENCOUNTER 2024-09-24 12:57 | Outpatient (CLI) | payer MEDICAID ==
[~2024-09-24 12:57] MED LIST changes: -BENA-19 PO; +BENA10TA90 PO
[2024-09-24 14:15] LABS: Alanine Aminotransferase 32.0 U/L (7-40); Albumin 4.6 g/dL (3.2-4.8); Alkaline Phosphatase 90.0 U/L (46-116); Total Protein 7.3 g/dL (5.7-8.2)
[2024-09-24 14:16] LABS: Bilirubin, Direct 0.3 mg/dL (<0.3); Bilirubin, Total 0.8 mg/dL (0.2-1.0)
[2024-09-24 14:36] LABS: Hepatitis B Surface Antigen Negative (Negative)
[2024-09-24 14:54] LABS: Hepatitis C Antibody Negative (Negative)
== END 2024-09-24 17:00 | disposition home or self-care (01) ==
LOC: LAB 12:57
PROVIDERS: ATTEND Nurse Practitioner Family
DX: R74.01 Elevation of levels of liver transaminase levels (principal); R73.9 Hyperglycemia, unspecified
CPT/HCPCS: 36415; 80076; 83036; 86705; 86709; 86803; 87340